=== PATIENT | male | born 1960 | race Caucasian/White ===

== ENCOUNTER 2021-10-29 05:55 | Day surgery (SDC) | payer OTHER ==
[2021-10-29] MEDS ORDERED: Scopolamine 1.5 MG Transdermal Patch TOP ONE (06:25)
[2021-10-29] MEDS ORDERED: Lactated Ringers 1,000 ML IV SCH (06:30)
[2021-10-29] MEDS ORDERED: Bupivacaine 0.5% 50 ML MDV ONE (06:42)
[2021-10-29] MEDS ORDERED: Bupivacaine 0.5%/EPINEPHrine 1:200,000 50 ML MDV ONE (06:43)
[2021-10-29] MEDS ORDERED: Lidocaine 1% with EPINEPHrine 1:100,000 50 ML MDV ONE (06:44)
[2021-10-29] MEDS ORDERED: Sodium Chloride 0.9% 1,000 ML IV SCH (07:02)
[2021-10-29] MEDS ORDERED: fentaNYL 250 MCG/5 ML SDV ONE (07:19)
[2021-10-29] MEDS ORDERED: Neostigmine Methylsulfate 1 MG/ML 5 ML Syringe ONE (07:20)
[2021-10-29] MEDS ORDERED: Dexamethasone 4 MG/ML SDV ONE (07:20)
[2021-10-29] MEDS ORDERED: Rocuronium 50 MG/5 ML Vial ONE (07:20)
[2021-10-29] MEDS ORDERED: Succinylcholine 200 MG/10 ML MDV ONE (07:20)
[2021-10-29] MEDS ORDERED: Glycopyrrolate 0.2 MG/ML 5 ML MDV ONE (07:20)
[2021-10-29] MEDS ORDERED: Propofol 200 MG/20 ML SDV ONE (07:20)
[2021-10-29] MEDS ORDERED: Ondansetron 4 MG/2 ML SDV ONE (07:20)
[2021-10-29] MEDS ORDERED: ceFAZolin 2 GM in Premix Bag 1 BAG IV ONE (07:30)
[2021-10-29] MEDS ORDERED: metroNIDAZOLE/Normal Saline 500 MG in Premix Bag 1 BAG IV ONE (07:30)
[2021-10-29] MEDS ORDERED: Acetaminophen/HYDROcodone 325-5 MG Tab PO PRN (08:10)
[2021-10-29] MEDS ORDERED: Benzocaine/Cetylpyridinium/Menthol Lozenge MUCMEM PRN (08:10)
[2021-10-29] MEDS ORDERED: Ondansetron 4 MG/2 ML SDV IVPUSH PRN (08:10)
[2021-10-29] MEDS ORDERED: Zolpidem 5 MG Tab PO PRN (08:10)
[2021-10-29] MEDS ORDERED: hydrOXYzine HCL 100 MG/2 ML SDV IM PRN (08:10)
[2021-10-29] MEDS ORDERED: Docusate Sodium 100 MG Cap PO PRN (08:10)
[2021-10-29] MEDS ORDERED: fentaNYL 100 MCG/2 ML SDV IVPUSH PRN ×3 (08:10)
[2021-10-29] MEDS ORDERED: fentaNYL 100 MCG/2 ML SDV ONE ×2 (08:13→08:28)
--- NOTE | 2021-10-29 10:13 | OR ---
DATE OF PROCEDURE: 10/29/2021 SURGEON: Ford Gtz MD PROCEDURES: 1. Transversus abdominis plane block bilaterally. 2. Rectus sheath blocks bilaterally. COMPLICATIONS: None. PROFILE GRINDER TECHNICIAN: None. RISKS: Risks, benefits, alternatives, and limitations including, but not limited to infection, bleeding, injury to abdominal structures and other risks not listed here were explained to the patient and wished to proceed. PROCEDURE IN DETAIL: The patient was placed in supine position. The left transversus plane was identified first. This was accessed using a 21-gauge needle under 13 megahertz ultrasound guidance. A 20% solution was injected. The other site was then performed in same manner. Bilateral rectus sheaths were also then injected under direct visualization. A 20% solution was injected respectively. All 4 procedures were performed in the same manner, same fashion, same technique in the same sequence, all using ultrasound guidance, and the needle was never advanced blindly nor past the peritoneum. The patient tolerated the procedure well. Ford Gtz MD /[id number]
--- NOTE | 2021-10-29 10:22 | OR ---
DATE OF PROCEDURE: 10/29/2021 SURGEON: Ford Gtz MD PROCEDURES: 1. Laparoscopic cholecystectomy. 2. True-cut liver biopsy. PREOPERATIVE DIAGNOSES: 1. Gallbladder polyp. 2. Right upper quadrant abdominal pain. 3. Cholecystitis. 4. Elevated liver function tests. COMPLICATION: None. EXECUTIVE SALES ASSISTANT: None. RISKS: Risks, benefits, alternatives, and limitations including, but not limited to infection, bleeding, perforation, false positives, false negatives were explained to the patient who wished to proceed. PROCEDURE IN DETAIL: The patient was placed in supine position. A supraumbilical linear incision was made to avoid the previous adhesion points. The abdomen was entered with Veress needle without abnormality. A drop test performed without abnormality. The abdomen was subsequently insufflated, after Optiview trocar was used. An additional 10 and two 5 mm ports were also entered under direct visualization. The patient was noted to have dense adhesions including the colon adhered to anterior abdominal wall superiorly from the camera port. These were all avoided and not interacted with them anyway. The gallbladder was retracted cephalad. The infundibulum was retracted inferolaterally. Using blunt dissection, a "clear view" of the gallbladder was obtained with a single pulsatile structure in the gallbladder, a single non-pulsatile structure entering the gallbladder. The cystic duct and artery were clipped x3 and subsequently transected. The remaining 1/3rd of the gallbladder was removed off the gallbladder bed without any difficulty. This was delivered through the superior port without any difficulty. The abdomen was irrigated. The pressure dropped to 7, no abnormal bleeding was noted. The liquid was removed. The wounds were closed with 3-0 and 4-0 Vicryl in interrupted running fashion. Dermabond was applied. The patient tolerated procedure well. Ford Gtz MD /[id number]
[2021-11-01] MEDS ORDERED: Scopolamine 1.5 MG Transdermal Patch TOP PRN (05:00)
== END 2021-10-29 12:30 | disposition home or self-care (01) ==
LOC: JP.SDS 05:55
PROVIDERS: ATTEND Surgery
DX: K75.81 Nonalcoholic steatohepatitis (NASH) (principal); K80.10 Calculus of gallbladder with chronic cholecystitis without obstruction; I10 Essential (primary) hypertension; E11.9 Type 2 diabetes mellitus without complications
CPT/HCPCS: 47379; 47562; A9270; J0171; J0330; J0690; J1100; J2405; J2704; J2710; J2795; J3010; J3490; J7030

== ENCOUNTER 2021-10-30 15:15 | Emergency (ER) | payer OTHER ==
[2021-10-30] MEDS ORDERED: HYDROmorphone 1 MG/ML Syringe IM ONE (16:42)
--- NOTE | 2021-10-30 17:12 | CRLCT ---
For Patients: As a result of the Century Cures Act, medical imaging exams and procedure reports are released immediately into your electronic medical record. You may view this report before your referring provider. If you have questions, please contact your health care provider. INDICATION: Postoperative abdominal pain. Status post cholecystectomy 1 day prior. TECHNIQUE: Axial images were obtained from the diaphragm to the pubic symphysis. Reformats were obtained in the coronal and sagittal plane. IV Contrast: None Oral Contrast: None COMPARISON: None. FINDINGS: Lower chest: Basilar discoid atelectasis. Liver: Mildly decreased density of the liver diffusely without focal lesion. Gallbladder and bile ducts: Status post cholecystectomy with mild fat stranding in the gallbladder fossa. No focal fluid collection. Common duct is normal in caliber. Spleen: Unremarkable. Normal in size without mass. Pancreas: Unremarkable. No mass or inflammation. Adrenal glands: Unremarkable. No nodules. Kidneys: Unremarkable. No masses, stones, or hydronephrosis. Vasculature: Atherosclerosis without abdominal aortic aneurysm. GI tract: Trace pneumoperitoneum with fat stranding in the right upper quadrant subcutaneous tissues. No dilated loops of large or small intestine. Moderate amount of stool within the colon. Unremarkable appendix. Pelvis: Trace free fluid in the deep pelvis. Bladder unremarkable. Bones: Degenerative disc disease lumbar spine. IMPRESSION: 1. Status post cholecystectomy with mild fat stranding within the gallbladder fossa consistent with postsurgical changes. No focal fluid collection seen. Trace pneumoperitoneum, within expected limits for postoperative day 1. 2. Hepatic steatosis. Please note that all CT scans at this facility use dose modulation, iterative reconstruction, and/or weight-based dosing when appropriate to reduce radiation dose to as low as reasonably achievable. Dictated by Moncho Cheatham MD @ 10/30/2021 5:11:46 PM (Electronically Signed)
--- NOTE | 2021-10-30 18:00 | EDM.PDOC ---
ED HPI GENERAL MEDICAL PROBLEM - General Chief Complaint: Abdominal Pain Stated Complaint: POST OP SEVERE PAIN Time Seen by Provider: 10/30/21 16:00 Source of Information: Reports: Patient, Family History Limitations: Reports: No Limitations - History of Present Illness INITIAL COMMENTS - FREE TEXT/NARRATIVE: 61-year-old male underwent a laparoscopic cholecystectomy yesterday, did well and was discharged home in the afternoon. He has been taking a regular dose of hydrocodone, this morning he developed very intense lower abdominal discomfort and dysuria. It worsened as the day went on so they called Dr. Gtz's surgeon, he recommended he go to the walk-in clinic for evaluation. He was seen there, UA was negative, x-ray showed "significant constipation" according to the provider and he was sent to the emergency room for further evaluation and treatment. No labs were done to this point. He was given an injection of Toradol which gave him fairly significant relief but his pain was increasing within 2 hours. Also had some nausea and vomiting. Onset: Gradual Duration: Hour(s): (Pain is increased in his lower abdomen for the past 8 hours.) Location: Reports: Abdomen Quality: Reports: Burning, Stabbing Associated Symptoms: Reports: Loss of Appetite, Malaise, Nausea/Vomiting. Denies: Shortness of Breath Lower Abdomen Pain Score (Numeric/FACES): 7 - Related Data Allergies Allergy/AdvReac Type Severity Reaction Status Date / Time No Known Allergies Allergy Verified 10/29/21 06:13 Home Meds: Home Meds Acetaminophen [Tylenol Extra Strength] 500 - 1,000 mg PO Q6H PRN 10/23/21 [History] Aspirin 325 mg PO DAILY 10/23/21 [History] Cholestyramine/Sucrose [Cholestyramine Packet] 4 gm PO TIDMEALS 10/23/21 [History] Cyclobenzaprine [Flexeril] 10 mg PO TID PRN 10/23/21 [History] Dulaglutide [Trulicity] 0.75 mg SQ Q7D 10/23/21 [History] Fish Oil/[place]-3 Fatty Acids [Fish Oil 1,000 MG] 1 gm PO DAILY 10/23/21 [History] Fluticasone Propionate [Flonase] 1 spray NS BID 10/23/21 [History] Glimepiride [Amaryl] 1 mg PO BID 10/23/21 [History] Glucosam/Chond/Collagen/Hyalur [Glucosamine Chondroitin] 1 each PO DAILY 10/23/21 [History] Multivitamin [Multi-Vitamin Daily] 1 each PO DAILY 10/23/21 [History] Rosuvastatin [Crestor] 5 mg PO BEDTIME 10/23/21 [History] Ubidecarenone [Coenzyme Q10] 100 mg PO DAILY 10/23/21 [History] metFORMIN [Glucophage XR] 1,000 mg PO BIDMEALS 10/23/21 [History] Past Medical History HEENT History: Reports: Hard of Hearing, Impaired Vision Other HEENT History: wears glasses, mastoid ear Cardiovascular History: Reports: High Cholesterol, Hypertension Gastrointestinal History: Reports: Cholelithiasis Musculoskeletal History: Reports: Fracture Endocrine/Metabolic History: Reports: Diabetes, Type II, Obesity/BMI 30+ Hematologic History: Reports: Blood Transfusion(s) - Infectious Disease History Infectious Disease History: Reports: Chicken Pox - Past Surgical History HEENT Surgical History: Reports: Tonsillectomy, Other (See Below) Other HEENT Surgeries/Procedures: right ear surgery-perferated ear drum GI Surgical History: Reports: Bariatric Procedure, Colonoscopy Other GI Surgeries/Procedures: lap band with removal 2 years ago and mesh placement (one wound was infected) Neurological Surgical History: Reports: Spinal Fusion Musculoskeletal Surgical History: Reports: Knee Replacement Other Musculoskeletal Surgeries/Procedures:: bilteral knee replacement 2014 Social & Family History - Family History Endocrine/Metabolic: Reports: Diabetes, type II Oncologic: Reports: Liver - Tobacco Use Tobacco Use Status *Q: Never Tobacco User - Caffeine Use Caffeine Use: Reports: Soda - Recreational Drug Use Recreational Drug Use: No ED ROS GENERAL - Review of Systems Review Of Systems: See Below Constitutional: Reports: Malaise. Denies: Fever, Chills HEENT: Reports: No Symptoms Respiratory: Denies: Shortness of Breath, Pleuritic Chest Pain Cardiovascular: Denies: Chest Pain GI/Abdominal: Reports: Abdominal Pain, Constipation, Nausea, Vomiting. Denies: Diarrhea : Reports: Dysuria, Urgency Musculoskeletal: Reports: No Symptoms Skin: Reports: No Symptoms Neurological: Reports: Dizziness. Denies: Headache Psychiatric: Reports: No Symptoms ED EXAM, GI/ABD - Physical Exam Exam: See Below Exam Limited By: No Limitations General Appearance: Alert, Moderate Distress, Other (Fairly uncomfortable, sitting up and holding his lower abdomen) Eyes: Bilateral: Normal Appearance Head: Atraumatic, Normocephalic Neck: Supple, Non-Tender Respiratory/Chest: Lungs Clear Cardiovascular: Regular Rate, Rhythm. No: Tachycardia GI/Abdominal Exam: Normal Bowel Sounds, Soft, Tender (Abdomen is fairly tender to palpation across the lower abdomen with mild to moderate guarding) (Male) Exam: No Hernia Extremities: Normal Inspection, No Pedal Edema Neurological: Alert, Oriented, No Motor/Sensory Deficits Psychiatric: Anxious Skin Exam: Warm, Dry Course - Vital Signs Last Recorded V/S: Last Vital Signs Temp 97.5 F 10/30/21 15:39 Pulse 69 10/30/21 16:44 Resp 16 10/30/21 15:39 BP 174/93 H 10/30/21 16:44 Pulse Ox 95 10/30/21 16:44 - Orders/Labs/Meds Labs: Laboratory Tests 10/30/21 10/30/21 Range/Units 16:21 16:21 WBC 16.8 H (4.5-11.0) K/uL RBC 4.92 (4.30-5.90) M/uL Hgb 13.8 (12.0-15.0) g/dL Hct 41.4 (40.0-54.0) % MCV 84 (80-98) fL MCH 28 (27-31) pg MCHC 33 (32-36) % Plt Count 191 (150-400) K/uL Neut % (Auto) 87.9 H (36-66) % Lymph % (Auto) 5.7 L (24-44) % [place] % (Auto) 6.2 H (2-6) % Eos % (Auto) 0.1 L (2-4) % Baso % (Auto) 0.1 (0-1) % Sodium 138 L (140-148) mmol/L Potassium 3.8 (3.6-5.2) mmol/L Chloride 101 (100-108) mmol/L Carbon Dioxide 27 (21-32) mmol/L Anion Gap 13.8 (5.0-14.0) mmol/L BUN 15 (7-18) mg/dL Creatinine 1.3 (0.8-1.3) mg/dL Est Cr Clr Drug Dosing 59.67 mL/min Estimated GFR (MDRD) 56 L (>60) Glucose 145 H (74-106) mg/dL Calcium 9.0 (8.5-10.1) mg/dL Total Bilirubin 0.4 (0.2-1.0) mg/dL AST 47 H (15-37) U/L ALT 67 (12-78) U/L Alkaline Phosphatase 60 (46-116) U/L Total Protein 7.6 (6.4-8.2) g/dL Albumin 4.5 (3.4-5.0) g/dL Globulin 3.1 (2.3-3.5) g/dL Albumin/Globulin Ratio 1.5 (1.2-2.2) Meds: Medications Discontinued Medications Generic Name Dose Route Start Last Admin Trade Name Freq PRN Reason Stop Dose Admin Hydromorphone HCl 1 mg 10/30/21 16:42 10/30/21 16:51 Hydromorphone 1 Mg/Ml Syringe IM 10/30/21 16:43 1 mg ONETIME ONE Administration - Re-Assessments/Exams Free Text/Narrative Re-Assessment/Exam: 10/30/21 18:40 Reviewed the notes from the clinic including normal UA results. Discussed his condition with Dr. Gtz, CBC and CMP was obtained. White count was elevated which is typical for postsurgical patients, hemoglobin normal, entire chemistry profile was normal except for minimal elevation of AST. CT report is as follows IMPRESSION: 1. Status post cholecystectomy with mild fat stranding within the gallbladder fossa consistent with postsurgical changes. No focal fluid collection seen. Trace pneumoperitoneum, within expected limits for postoperative day 1. 2. Hepatic steatosis. Patient was given 1 mg of IM Dilaudid which provided some relief. Condition was also discussed with Dr. Gtz after all labs were returned, I recommended some MiraLAX to keep bowels moving, water, and also discharging with 20 extra doses of ketorolac to take along with his hydrocodone. He will return if not improving satisfactorily. Departure - Departure Time of Disposition: 18:07 Disposition: Home, Self-Care 01 Clinical Impression: Postoperative abdominal pain - Discharge Information Instructions: Abdominal Pain, Adult, [id number] Referrals: Kalpana Green PA-C [Primary Care Provider] - Forms: ED Department Discharge Care Plan Goals: Continue current medications, and take 1 ketorolac every 6 hours for the next 2 to 3 days. MiraLAX may be helpful when moving her bowels, return in the next 24 to 48 hours if worsening or concerns. Sepsis Event Note (ED) - Evaluation Sepsis Screening Result: No Definite Risk - Focused Exam Vital Signs: Vital Signs Temp Pulse Resp BP Pulse Ox 10/30/21 16:44 69 174/93 H 95 10/30/21 15:39 97.5 F 58 L 16 170/74 H 97 10/30/21 15:28 97.5 F 58 L 16 170/74 H 97
== END 2021-10-30 18:09 | disposition home or self-care (01) ==
LOC: JP.ED 15:15
DX: G89.18 Other acute postprocedural pain (principal); R10.9 Unspecified abdominal pain; E78.00 Pure hypercholesterolemia, unspecified; I10 Essential (primary) hypertension; E11.9 Type 2 diabetes mellitus without complications; E66.9 Obesity, unspecified; Z68.37 Body mass index [BMI] 37.0-37.9, adult; Z79.82 Long term (current) use of aspirin; Z79.84 Long term (current) use of oral hypoglycemic drugs; Z79.899 Other long term (current) drug therapy
CPT/HCPCS: 36415; 74176; 80053; 85025; 96372; 99284; J1170